=== PATIENT | male | born 1970 | race Caucasian/White ===

== ENCOUNTER 2019-04-16 09:42 | Emergency (ER) | payer OTHER, SELFPAY ==
[2019-04-16 09:55] VITALS: BP 125/70; PULSE 98; RESP 20; TEMP 37.3; O2SAT 96
--- NOTE | 2019-04-16 10:16 | ED.URI ---
HPI - URI/Sore Throat General Chief Complaint: Upper Respiratory Infection Stated Complaint: Cold/Flu symptoms Time Seen by Provider: 04/16/19 10:19 Source: patient and RN notes reviewed Mode of arrival: ambulatory Limitations: no limitations History of Present Illness HPI Narrative: 48-year-old male who presents to [facility] care with complaints of fever of 101.9 last night, fatigue, body aches, cough which is dry, decrease in appetite with some sinus drainage and congestion. Patient states symptoms first started yesterday afternoon and requests Tamiflu if positive for flu. Patient denies any acute shortness of breath, lungs are clear to auscultation with no tachypnea or accessory muscle use, SaO2 96% on room air. Patient does have a history of tobacco abuse of 1 pack daily for 25 years. Patient states he did not take a flu immunization this season. MD elicited complaint: fever, cough, rhinorrhea, nasal congestion and other (Body aches) Pertinent past history: other (Tobacco abuse) Onset (ago): day(s) (1) Consistency: progressively worsening Severity: moderate Pain scale (0-10): 4 Description of mucous: clear Able to tolerate fluids by mouth: Yes Exacerbating factors: exertion and deep breaths (Increased cough) Relieving factors: nothing Associated symptoms: fever, chills, myalgias, rhinorrhea, nasal congestion and cough Treatments prior to arrival: other (Coricidin HBP) Related Data Home Medications Medication Instructions Recorded Confirmed metformin 500 mg PO DAILY 04/16/19 04/16/19 Allergies Allergy/AdvReac Type Severity Reaction Status Date / Time No Known Allergies Allergy Unverified 02/19/19 11:52 Review of Systems Review of Systems: Narrative: CONSTITUTIONAL: Positive fever, chills, or sweats. EYES: Denies visual changes, redness, or discharge. ENT: Positive rhinorrhea, congestion, no sore throat, or otalgia. CARDIOVASCULAR: Denies chest pain, palpitations, or edema. RESPIRATORY: Positive cough denies dyspnea. GASTROINTESTINAL: Denies abdominal pain, nausea, vomiting, or diarrhea. States decreased appetite GENITOURINARY: Denies dysuria or hematuria. SKIN: Denies rash or itching. MUSCULOSKELETAL: Denies back pain, joint pain, body aches NEUROLOGIC: Denies headache, numbness, or weakness. PSYCHIATRIC: Denies anxiety or depression. All systems reviewed & are unremarkable except as noted in HPI and below PMFSH Past Medical History Medical History (Updated 04/16/19 @ 10:38 by Addie Gonzalez NP) Diabetes Hyperlipidemia Hypertension Surgical History Surgical History (Updated 04/16/19 @ 10:38 by Addie Gonzalez NP) Hx of cataract surgery Family History Family History (Updated 05/03/17 @ 10:58 by DOCTOR UNKNOWN) Father Hypertension Family history of type 2 diabetes mellitus Family history of heart disease in male family member before age 55 Other Cerebrovascular accident Diabetes mellitus Family history of cardiovascular disease Social History Social History (Updated 04/16/19 @ 10:30 by Addie Gonzalez NP) Smoking packs per day: 1 Smoking cigarettes per day: 20.0 Years smoked: 25 Smoking pack-years: 25.00 Smoking status: Heavy tobacco smoker Tobacco type: cigarettes Alcohol intake: current Living arrangements: with family 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 There is no relevant family history pertinent to the presenting complaint Exam Narrative: Exam Narrative: GENERAL: Well-appearing, well-nourished, and in no acute distress. HEAD: Normocephalic, atraumatic. EYES: PERRLA and EOMI. ENT: Nares red, clear rhinorrhea no epistaxis. Mucous membranes moist.TM's normal with good light reflex, throat mild redness,no lesions or exudate, no tonsil enlargement, some post nasal drainage NECK: Supple.no lymph
--- NOTE | 2019-04-16 10:41 | ED.URI ---
HPI - URI/Sore Throat General Chief Complaint: Upper Respiratory Infection Stated Complaint: Cold/Flu symptoms Time Seen by Provider: 04/16/19 10:19 Source: patient and RN notes reviewed Mode of arrival: ambulatory Limitations: no limitations History of Present Illness Severity: moderate Exacerbating factors: exertion and deep breaths (Increased cough) Relieving factors: nothing Associated symptoms: fever, chills, myalgias, rhinorrhea, nasal congestion and cough Treatments prior to arrival: other (Coricidin HBP) Related Data Home Medications Medication Instructions Recorded Confirmed metformin 500 mg PO DAILY 04/16/19 04/16/19 Allergies Allergy/AdvReac Type Severity Reaction Status Date / Time No Known Allergies Allergy Unverified 02/19/19 11:52 [facility] Past Medical History Medical History (Updated 04/16/19 @ 10:38 by Addie Gonzalez NP) Diabetes Hyperlipidemia Hypertension Surgical History Surgical History (Updated 04/16/19 @ 10:38 by Addie Gonzalez NP) Hx of cataract surgery Family History Family History (Updated 05/03/17 @ 10:58 by DOCTOR UNKNOWN) Father Hypertension Family history of type 2 diabetes mellitus Family history of heart disease in male family member before age 55 Other Cerebrovascular accident Diabetes mellitus Family history of cardiovascular disease Social History Social History (Updated 04/16/19 @ 10:30 by Addie Gonzalez NP) Smoking packs per day: 1 Smoking cigarettes per day: 20.0 Years smoked: 25 Smoking pack-years: 25.00 Smoking status: Heavy tobacco smoker Tobacco type: cigarettes Alcohol intake: current Living arrangements: with family 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 Gender identity (if verbalized by the patient): Male Course Vital Signs Vital signs: Vital Signs Temperature 37.3 C 04/16/19 09:55 Pulse Rate 98 04/16/19 09:55 Respiratory Rate 20 04/16/19 09:55 Blood Pressure 125/70 04/16/19 09:55 Pulse Oximetry 96 04/16/19 09:55 Temperature 37.3 C 04/16/19 09:55 Pulse Rate 98 04/16/19 09:55 Respiratory Rate 20 04/16/19 09:55 Blood Pressure 125/70 04/16/19 09:55 Pulse Oximetry 96 04/16/19 09:55 MDM - URI/Sore Throat Lab Data Labs: Influenza A Screen Negative Reference Range: Negative Influenza B Screen Positive Reference Range: Negative Discharge Plan Discharge Clinical Impression: Influenza Patient Disposition: Home, Self-Care Condition: Stable Instructions: Influenza (ED), Acute Cough (ED) Additional Instructions: Increase fluids especially juices and water [id number] cough and cold medicine of your choice for your symptoms Mucinex and Coricidin HBP daily while having symptoms Tylenol or ibuprofen for any fevers or pain heat to the face 20-30 minutes 4-6 times a day for pain Salt water gargles, throat lozenges or throat sprays as desired If your symptoms persist, change or worsen significantly before you can contact your personal physician then please, without delay, go to the emergency department for further evaluation. Follow-up with PCP in 7-10 days or sooner if needed Follow up with PCP soon in regards to your blood pressure which is elevated above threshold for referral. Blood pressure above 120/80 may indicate pre-hypertension. Prescriptions: New oseltamivir [Tamiflu] 75 mg capsule 75 mg PO Q12H 5 Days Qty: 10 RF: 0 No Action metformin 500 mg Tablet 500 mg PO DAILY RF: 0 lisinopril 20 mg tablet 20 mg PO BID Qty: 180 RF: 0 hydrochlorothiazide 12.5 mg tablet 12.5 mg PO DAILY Qty: 90 RF: 0 rosuvastatin 20 mg tablet 20 mg PO DAILY Qty: 90 RF: 1 Follow-up/Referrals: Kristin Diego MD [Primary Care Provider] - Time of Disposition: 10:37
== END 2019-04-16 11:05 | disposition home or self-care (01) ==
PROVIDERS: Emergency Provider Registered Nurse; PCP Family Medicine
DX: J10.1 Influenza due to other identified influenza virus with other respiratory manifestations (principal); F17.210 Nicotine dependence, cigarettes, uncomplicated; E11.9 Type 2 diabetes mellitus without complications; E78.5 Hyperlipidemia, unspecified; I10 Essential (primary) hypertension
CPT/HCPCS: 87804; 99213; G0463

== ENCOUNTER 2020-09-19 12:32 | Outpatient (CLI) | payer OTHER, SELFPAY ==
[2020-09-19 13:56] LABS: MALB Creatinine Ratio < 4.0 mg/g (0-30); Microalbumin Urine Random < 6.0 mg/L (0-16.7)
== END 2020-09-19 12:33 | disposition home or self-care (01) ==
LOC: ANHLAB 12:33
PROVIDERS: PCP Family Medicine; Visit Provider Internal Medicine Endocrinology, Diabetes & Metabolism
DX: E11.9 Type 2 diabetes mellitus without complications (principal)
CPT/HCPCS: 82043

== ENCOUNTER → 2021-01-27 08:42 | Outpatient (CLI) | payer OTHER, SELFPAY ==
[2021-01-30 20:23] LABS: SARS-CoV-2 RNA PCR Positive
== END ==
PROVIDERS: PCP Family Medicine; Visit Provider Nurse Practitioner Family
DX: U07.1 COVID-19 (principal)
CPT/HCPCS: C9803; U0003; U0005

== ENCOUNTER 2021-08-13 10:22 | Emergency (ER) | payer OTHER, SELFPAY ==
[2021-08-13 10:28] VITALS: BP 145/73; PULSE 84; RESP 16; TEMP 36.8; O2SAT 98
--- NOTE | 2021-08-13 10:36 | ED.SKABFB ---
HPI - Skin/Abscess/Foreign Bdy General Chief complaint: Skin/Abscess/Foreign Body Stated complaint: SKin Problem/Left Leg Time Seen by Provider: 08/13/21 10:43 Source: patient Mode of arrival: ambulatory Limitations: no limitations History of Present Illness HPI narrative: 50 year old male presented for c/o redness to left inner knee and streaking on upper calf, states it is tender and warm. Endorses sudden onset of pain yesterday while sitting outside. Redness started about 1 hour later. Denies seeing insect. Denies chest pain, palpitations, shortness of breath, swelling or calf tenderness. Hx DM, HTN, smokes 1PPD. MD complaint: rash Related Data Home Medications Medication Instructions Recorded Confirmed empagliflozin 25 mg tablet 25 mg PO DAILY 08/13/21 08/13/21 (Jardiance) lisinopril 20 mg tablet 20 mg PO DAILY 08/13/21 08/13/21 metformin 500 mg tablet,extended 1,000 mg PO BID 08/13/21 08/13/21 release 24 hr Allergies Allergy/AdvReac Type Severity Reaction Status Date / Time No Known Allergies Allergy Verified 08/13/21 10:40 Review of Systems Review of Systems: CONSTITUTIONAL: Denies body aches, fever, chills, or sweats. ENT: Denies rhinorrhea, congestion, sore throat, or otalgia. CARDIOVASCULAR: Denies chest pain, palpitations, or edema. RESPIRATORY: Denies cough or dyspnea. GASTROINTESTINAL: Denies abdominal pain, nausea, vomiting, or diarrhea. GENITOURINARY: Denies dysuria or hematuria. SKIN: Reports redness to left medial knee denies rash, itching, wounds. MUSCULOSKELETAL: Denies back pain, joint pain, or myalgia. NEUROLOGIC: Denies headache, numbness, tingling, or weakness. REPLACED BY [facility] Past Medical History Medical History Hyperlipidemia Hypertension Tobacco use Type 2 diabetes mellitus without complications Surgical History Surgical History Hx of cataract surgery (~2010) Family History Family History Father Hypertension Family history of type 2 diabetes mellitus Family history of heart disease in male family member before age 55 Other Cerebrovascular accident Diabetes mellitus Family history of cardiovascular disease Social History Social History Smoking packs per day: 1 Smoking cigarettes per day: 20.0 Years smoked: 25 Smoking pack-years: 25.00 Smoking status: Current every day smoker Tobacco type: cigarettes Alcohol intake: current Substance use: never 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 Please see nursing chart for further information. There is no relevant family history pertinent to the presenting complaint Exam Narrative: GENERAL: Well-appearing EYES: conjunctivae clear, and EOMI. ENT: Mucous membranes moist. CHEST: Clear to auscultation. HEART: Regular rate and rhythm. SKIN: Warm, dry. Left medial knee with approx 3cm diameter erythematous [place] TTP, warm; erythematous tender linear streak medial distal knee approx 10cm length x2cm c/w superficial thrombophelbitis; No calf pain/swelling, no unilateral edema or additional erythema to extremity NEURO: Alert and oriented x3. Course Course Emergency Course: Patient is aware of diagnosis, understands and agrees to treatment plan. Anticipatory guidance given. Patient agrees to follow-up as directed and is aware of reasons to seek care at the emergency department. Portions of this record may have been created with voice recognition software Level of Care: Express Care Visit Vital Signs Vital signs: Vital Signs Temperature 98.3 F 08/13/21 10:28 Puls
== END 2021-08-13 10:59 | disposition home or self-care (01) ==
PROVIDERS: Emergency Provider Nurse Practitioner Family
DX: I80.02 Phlebitis and thrombophlebitis of superficial vessels of left lower extremity (principal); E11.9 Type 2 diabetes mellitus without complications; E78.5 Hyperlipidemia, unspecified; I10 Essential (primary) hypertension; F17.210 Nicotine dependence, cigarettes, uncomplicated
CPT/HCPCS: 99213; G0463

== ENCOUNTER 2021-08-13 23:48 | Emergency (ER) | payer OTHER, SELFPAY ==
[2021-08-14 00:52] VITALS: BP 140/75; PULSE 94; RESP 16; TEMP 36.7; O2SAT 95
[2021-08-14 02:50] LABS: Basophils Absolute Auto 0.1 K/mm3 (0.0-0.1); Basophils Percent Auto 0.4 % (0.2-1.2); Eosinophils Absolute Auto 0.2 K/mm3 (0-0.3); Eosinophils Percent Auto 1.6 % (0-4.4); Hematocrit 48.7 % (42.0-52.0); Hemoglobin 16.3 g/dL (14.0-18.0); Immature Granulocyte Absolute 0.04 K/mm3 (0.00-0.031); Immature Granulocyte Percent A 0.4 % (0-0.5); Lymphocytes Percent Auto 27.1 % (18.3-44.2); Mean Corpuscular HGB Conc 33.5 g/dl (32-36); Mean Corpuscular Hemoglobin 30.3 pg (26-34); Mean Corpuscular Volume 90.5 fl (80-100); Mean Platelet Volume 9.6 fl (7.4-10.4); Monocytes Absolute Auto 1.3 K/mm3 (0.1-0.6); Monocytes Percent Auto 11.3 % (2.6-8.5); Neutrophils Absolute Auto 6.8 K/mm3 (1.3-6.7); Neutrophils Percent Auto 59.2 % (45.5-73.1); Platelet Count Result 251 k/mm3 (150-375); Red Blood Count 5.38 M/mm3 (4.6-6.20); White Blood Count 11.4 K/mm3 (4.5-10.0)
[2021-08-14 03:00] LABS: Prothrombin Time 13.2 Seconds (11.1-14.7)
[2021-08-14 03:01] LABS: Partial Thromboplastin Time 27.1 SECONDS (22.3-36.8)
[2021-08-14 03:03] LABS: Anion Gap 8 mmol/L (8-16); Blood Urea Nitrogen 16 mg/dL (9-20); CRP 1.8 mg/dL (<1.0); Carbon Dioxide 26 mmol/L (22-30); Chloride 101 mmol/L (98-107); Estimated CRCL calculation 140 ml/min; Estimated Glomerular Filt Rate > 60; Glucose 159 mg/dL (65-110); Potassium 4.2 mmol/L (3.4-5.0); Sodium 135 mmol/L (137-145)
--- NOTE | 2021-08-14 03:11 | ED.GENADULT ---
HPI - General Adult General Chief complaint: Skin/Abscess/Foreign Body Stated complaint: swelling/red/painful leg Time Seen by Provider: 08/14/21 02:26 History of Present Illness HPI narrative: 50-year-old male with history of diabetes presenting to the emergency department for evaluation of an area of erythema on his left medial knee. Patient states that he noticed on Saturday he had some soreness and erythema of the left leg. Patient had follow-up with urgent care and was started on antibiotics. Patient has only taken 2 doses of the antibiotics. Patient became concerned because he does have some worsening erythema. Related Data Home Medications Medication Instructions Recorded Confirmed empagliflozin 25 mg tablet 25 mg PO DAILY 08/13/21 08/13/21 (Jardiance) lisinopril 20 mg tablet 20 mg PO DAILY 08/13/21 08/13/21 metformin 500 mg tablet,extended 1,000 mg PO BID 08/13/21 08/13/21 release 24 hr Allergies Allergy/AdvReac Type Severity Reaction Status Date / Time No Known Allergies Allergy Verified 08/14/21 00:55 Review of Systems Review of Systems: CONSTITUTIONAL: Denies fever, chills, or sweats. EYES: Denies visual changes, redness, or discharge. ENT: Denies rhinorrhea, congestion, sore throat, or otalgia. CARDIOVASCULAR: Denies chest pain, palpitations, or edema. RESPIRATORY: Denies cough or dyspnea. GASTROINTESTINAL: Denies abdominal pain, nausea, vomiting, or diarrhea. GENITOURINARY: Denies dysuria or hematuria. SKIN: See HPI MUSCULOSKELETAL: Denies back pain, joint pain, or myalgia. NEUROLOGIC: Denies headache, numbness, or weakness. [facility] Past Medical History Medical History Hyperlipidemia Hypertension Tobacco use Type 2 diabetes mellitus without complications Surgical History Surgical History Hx of cataract surgery (~2010) Family History Family History Father Hypertension Family history of type 2 diabetes mellitus Family history of heart disease in male family member before age 55 Other Cerebrovascular accident Diabetes mellitus Family history of cardiovascular disease Social History Social History Smoking packs per day: 1 Smoking cigarettes per day: 20.0 Years smoked: 25 Smoking pack-years: 25.00 Smoking status: Current every day smoker Tobacco type: cigarettes Alcohol intake: current Substance use: never 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 HEAD: normocephalic, atraumatic. EYES: PERRLA/EOMI, conjunctivae clear. NOSE: Normal no drainage NECK: Supple. No adenopathy, no masses. RESPIRATORY: Airway patent, respirations nonlabored. Clear to auscultation bilaterally, no rales, rhonchi, wheezing. CARDIOVASCULAR: Regular rate and rhythm without murmurs rubs or gallops. ABDOMINAL: Soft, nontender, nondistended, normal bowel sounds MUSCULOSKELETAL: Moves all extremities. Area of erythema on the left medial knee. Not associated with the joint. Erythema did spread to inches past the chitina drawn earlier today. NEURO: Alert. Cranial nerves II through XII intact. Grossly intact SKIN: Warm, dry. Normal Color Course Course Emergency Course: Bedside ultrasound shows patent veins below the area of erythema. No fluctuant abscess. Suspect cellulitis rather than abscess. Patient was treated with an IV dose of Rocephin. Patient is currently taking Keflex. Patient was updated on the treatment plan and the anticipated course of the illness. Patient is going to attempt to have follow-up with his primary care physician on Saturday. Vital Signs Vital signs: Vital Signs Temperature 98.1 F 08/14
[2021-08-14 03:26] LABS: Erythrocyte Sedimentation Rate 3 mm/hr (0-20)
== END 2021-08-14 03:53 | disposition home or self-care (01) ==
PROVIDERS: Physician Assistant; Emergency Provider Emergency Medicine
DX: L03.116 Cellulitis of left lower limb (principal); E78.5 Hyperlipidemia, unspecified; I10 Essential (primary) hypertension; E11.9 Type 2 diabetes mellitus without complications; Z79.84 Long term (current) use of oral hypoglycemic drugs; F17.210 Nicotine dependence, cigarettes, uncomplicated
CPT/HCPCS: 36415; 80048; 85025; 85610; 85652; 85730; 86140; 96365; 99284; J0696

== ENCOUNTER 2021-08-15 11:09 | Outpatient (CLI) | payer OTHER, SELFPAY ==
--- NOTE | ~2021-08-15 | US_ITS ---
EXAMINATION: US venous doppler [facility] DATE: 08/15/2021 11:45 INDICATION: Left lower limb pain TECHNIQUE: Grayscale ultrasound images without and with compression and Doppler ultrasound images of the left lower extremity veins were obtained. COMPARISON: None. FINDINGS: The visualized portions of left common femoral vein, profunda (deep) femoral vein, femoral vein, popl iteal vein, peroneal veins, posterior tibial veins, gastrocnemius vein and greater saphenous vein out flow are patent. The left greater saphenous vein also extends across the region of erythema and pain or chest also patent and compressible. A couple shotty left inguinal lymph nodes, the larger measurin g 1.3 cm in maximal diameter with central echogenic fatty hilum. IMPRESSION: 1. No deep venous thrombosis in the left lower limb. 2. Mild reactive left inguinal lymphadenopathy. Reviewed, dictated and finalized at location A.
== END 2021-08-15 11:10 | disposition home or self-care (01) ==
PROVIDERS: PCP Family Medicine; Visit Provider Family Medicine
DX: M79.605 Pain in left leg (principal)
CPT/HCPCS: 93971

== ENCOUNTER 2023-01-25 07:59 | Outpatient (CLI) | payer OTHER, SELFPAY ==
[2023-01-25 12:00] LABS: Basophils Absolute Auto 0.1 K/mm3 (0.0-0.1); Basophils Percent Auto 0.7 % (0.2-1.2); Eosinophils Absolute Auto 0.2 K/mm3 (0-0.3); Eosinophils Percent Auto 2.2 % (0-4.4); Hemoglobin 17.4 g/dL (14.0-18.0); Immature Granulocyte Absolute 0.03 K/mm3 (0.00-0.031); Immature Granulocyte Percent A 0.3 % (0-0.5); Lymphocytes Percent Auto 42.9 % (18.3-44.2); Mean Corpuscular HGB Conc 32.2 g/dl (32-36); Mean Corpuscular Hemoglobin 30.3 pg (26-34); Mean Corpuscular Volume 94.1 fl (80-100); Mean Platelet Volume 10.6 fl (7.4-10.4); Monocytes Absolute Auto 1.1 K/mm3 (0.1-0.6); Monocytes Percent Auto 11.6 % (2.6-8.5); Neutrophils Absolute Auto 3.9 K/mm3 (1.3-6.7); Neutrophils Percent Auto 42.3 % (45.5-73.1); Platelet Count Result 281 k/mm3 (150-375); Red Blood Count 5.74 M/mm3 (4.6-6.20); Red Cell Distribution Width 12.8 % (11.5-14.5); White Blood Count 9.1 K/mm3 (4.5-10.0)
[2023-01-25 12:14] LABS: Creatinine Urine 111.5 mg/dL
[2023-01-25 12:30] LABS: Alanine Aminotransferase 43 U/L (6-50); Albumin Level 4.6 g/dL (3.5-5.1); Alkaline Phosphatase 81 U/L (38-126); Anion Gap 7 mmol/L (8-16); Aspartate Amino Transferase 70 U/L (17-59); Bilirubin,Total 0.6 mg/dL (0.2-1.3); Blood Urea Nitrogen 12 mg/dL (9-20); Calcium 9.7 mg/dL (8.4-10.2); Carbon Dioxide 31 mmol/L (22-30); Chloride 99 mmol/L (98-107); Cholesterol 122 mg/dL (0-200); Estimated Glomerular Filt Rate > 60; Glucose 101 mg/dL (65-110); HDL Direct 23 mg/dL; Potassium 4.4 mmol/L (3.4-5.0); Sodium 137 mmol/L (137-145); Triglycerides 118 mg/dL (<150)
[2023-01-25 12:41] LABS: Free T4 Free Thyroxine 1.31 ng/mL (0.78-2.19)
[2023-01-25 12:57] LABS: LDL Cholesterol Direct 78 mg/dL
[2023-01-25 13:05] LABS: Prostate Specific Antigen 0.6 ng/mL (< OR = 4.0)
[2023-01-25 13:22] LABS: Hemoglobin A1C 7.3 % (<5.7)
[2023-01-25 13:38] LABS: MALB Creatinine Ratio < 5.4 mg/g (0-30); Microalbumin Urine Random < 6.0 mg/L (0-16.7)
[2023-01-25 14:04] LABS: Vitamin D 25 Hydroxy < 12.8 ng/mL
== END 2023-01-25 08:00 | disposition home or self-care (01) ==
LOC: ANHGOSHLAB 08:01
PROVIDERS: Nurse Practitioner Family; PCP Family Medicine; Visit Provider Internal Medicine
DX: E11.9 Type 2 diabetes mellitus without complications (principal); I10 Essential (primary) hypertension; Z12.5 Encounter for screening for malignant neoplasm of prostate; E78.5 Hyperlipidemia, unspecified; Z00.00 Encounter for general adult medical examination without abnormal findings
CPT/HCPCS: 36415; 80053; 80061; 82043; 82306; 83036; 84153; 84439; 84443; 85025; G0103

== ENCOUNTER 2023-08-26 10:17 | Outpatient (CLI) | payer OTHER, SELFPAY ==
[2023-08-27 09:55] LABS: Kit Draw Collected
== END 2023-08-26 10:18 | disposition home or self-care (01) ==
LOC: ANHGOSHLAB 10:19
PROVIDERS: PCP Family Medicine; Visit Provider Nurse Practitioner Family
DX: E11.9 Type 2 diabetes mellitus without complications (principal); I10 Essential (primary) hypertension
CPT/HCPCS: 36415